=== PATIENT | male | born 1960 | race Caucasian/White ===

== ENCOUNTER 2020-09-08 11:19 | Inpatient (IN) ==
--- NOTE | 2020-09-01 08:43 | PAT Medication Instructions ---
Medication Instructions Date of Service September 01, 2020 Home Medications Medication Instructions Recorded oxycodone 5 mg PO Q6H PRN #20 tab 08/16/20 oxycodone 5 mg PO Q6H PRN Continue as directed oxycodone 5 mg PO Q6H PRN (keep taking, as needed leading up to surgery. Can be taken on morning of surgery, if really needed, up to four hours before arrival). *NOTHING TO EAT OR DRINK AFTER MIDNIGHT THE NIGHT BEFORE SURGERY* Other Notes If you have any questions please call us at [phone] or [phone] or [phone] or [phone]
--- NOTE | 2020-09-01 09:42 | Anesthesiology Consultation ---
Date of Service September 01, 2020 Assessment & Plan (1) Encounter for pre-operative examination: COVID Status: As of 09/01 assessment, patient denies travel to endemic area, known exposure/sick contacts, or symptoms of COVID19. Patient instructed that they and their household members must follow strict social distancing guidelines, wear a mask in public and avoid travel/events/gatherings for 14 days prior to surgery. Preoperative COVID19 testing completed at [facility] 09/01/20. Patient made aware to self-isolate as much as possible between COVID testing and surgery. Pt is fully vaccinated. Chart Review Chart Review: Acceptable Risk for Surgery and Patient seen in Pre Admission Testing Teaching & Discussion Instructed NPO after midnight before surgery, except medications with 15 cc of water. Medication instructions provided according to the [facility] guidelines. History Surgery Operation Date: 09/08/20 13:25 Proposed Procedures p Posterior Fusion Instrumentation Spinal Cord Monitoring - Richard Frost DO Height/Weight Height: 5 ft 9 in Weight: 97.2 kg Allergies Allergy/AdvReac Type Severity Reaction Status Date / Time No Known Allergies Allergy Unverified 08/30/20 12:47 Medications Home Medications Medication Instructions Recorded Confirmed Last Taken oxycodone 5 mg PO Q6H PRN #20 tab 08/16/20 08/30/20 Unknown Past Medical History Medical History Degenerative disc disease Sleep apnea CPAP DEVICE (DOES NOT USE EVERY NIGHT) Exercise / Class Metabolic Activity II 4-5 Yardwork/Stairs/Walk up hill (currently limited only because of back pain) Past Family History Family History Other No family history of adverse response to anesthesia Past Surgical History Surgical History History of arthroscopy LEFT SHOULDER History of cataract surgery RT/LEFT History of colonoscopy History of tooth extraction Past Anesthesia History No Hx of Anesthesia Complications and No Family Hx of Anesthesia Complications History of PONV No Hx of PONV and No Hx of Motion Sickness Social History Smoking Status: Never smoker tobacco type: smokeless tobacco Do You Dip or Chew Tobacco: No (QUIT AT AGE 46) Hx Alcohol Use: Yes Alcohol type: beer alcohol intake frequency: a few times a week substance use type: does not use Review of Systems Pt denies any recent chest pain, shortness of breath, palpitations, cough, fever, URI, or uncontrolled acid reflux. Physical Exam Vital Signs BP: 119/81 P: 97bpm SPO2: 97% RA T: 97.7 F R: 16 ENMT Mouth: + dental bridge (upper front teeth) and + dental restorations; no chipped teeth and no loose teeth Thyromental Distance: > or= 3.5 Finger Breadths Mallampati Class: III Neck + thick neck; neck extension not limited Respiratory normal respiratory effort, lungs clear to auscultation Cardiovascular RRR, no murmur, no edema Lab Results Anesthesia Preop Results Results Anesthesia Widget: WBC 13.38 K/uL (4.8-10.8) H 08/16/20 Hgb 16.9 g/dL (14.0-18.0) 08/16/20 Hct 48.2 % (42-52) 08/16/20 Plt 305 K/uL (130-400) 08/16/20 Na 135 mmol/L (136-145) L 08/16/20 K 4.1 mmol/L (3.5-5.1) 08/16/20 Cl 101 mmol/L (98-107) 08/16/20 CO2 27 mmol/L (21-32) 08/16/20 BUN 20 mg/dl (7-18) H 08/16/20 Creat 1.22 mg/dl (0.6-1.4) 08/16/20 Glucose Level 101 mg/dl (70-99) H 08/16/20 PT 10.3 Seconds (9.0-12.0) 08/16/20 PTT 26.5 Seconds (21.0-31.0) 08/16/20 INR 1.0 (0.9-1.1) 08/16/20 Lab Comments: *Re: elevated WBC count, patient had had steroid injection a few days prior to these labs. Testing Laboratory Results Urine Color Dark Yellow 09/01/20 09:54 Urine Appearance Clear (Clear) 09/01/20 09:54 Urine pH 5.0 (4.5-7.5) 09/01/20 09:54 Ur Specific [place] 1.026 (1.000-1.030) 09/01/20 09:54 Urine Protein Negative (Negative) 09/01/20 09:54 Urine Glucose (UA) Negative (Negative) 09/01/20 09:54 Urine Ketones Trace (Negative) H 09/01/20 09:54 Urine Nitrite Negative (Negative) 09/01/20 09:54 Ur Leukocyte Esterase Negative (Negative) 09/01/20 09:54 Blood Type O Positive 09/01/20 09:54 Antibody Screen NEGATIVE 09/01/20 09:54 Electrocardiogram Date: 08/16/20 Findings: + NSR @ (86bpm) Possible left atrial enlargement. Left axis deviation. No significant change compared EKG from 07/23/2012. Chest X-Ray Date: 09/01/20 Findings: + NAD
--- NOTE | 2020-09-01 10:25 | XRay Report ---
XR chest Pre-admission PA/Lat CLINICAL HISTORY: Preoperative evaluation. COMPARISON STUDY: Chest radiograph July 23, 2012. FINDINGS: Lung volumes are normal. Lungs are clear. There is no pneumothorax or pleural effusion. Car diac size is normal. Mediastinal contours are normal. There is no evidence for pulmonary edema. IMPRESSION: No acute cardiopulmonary findings. ACT 112: Negative or not required by law. Electronically signed by: Nino Meeks M.D. 09/01/2020 10:24 AM
[2020-09-01 10:48] LABS: Appearance Urine Clear (Clear); Blood Urine Negative (Negative); Color Urine Dark Yellow; Glucose Urine UA Negative (Negative); Ketones Urine Trace (Negative); Leukocyte Esterase Urine Negative (Negative); Nitrite Urine Negative (Negative); Protein Urine Negative (Negative); Specific Gravity Urine 1.026 (1.000-1.030); Urobilinogen Urine Negative (Negative)
[2020-09-01 10:55] LABS: Bilirubin Urine 1+ (Negative)
[~2020-09-08 11:19] MED LIST: ACETAMINOPHEN 500 MG TAB PO SCH; CeleBREX 200 MG CAP PO SCH; DEXAMETHASONE SOD INJ 4 MG/ML VIAL ONE; GABAPENTIN 300 MG CAP PO SCH; GLYCOPYRROLATE 0.2 MG/ML VIAL ONE; HYDROmorphone INJ 2 MG/ML SYR/VIAL ONE; LARYING-O-JET KIT (LTA) ONE; LIDOCAINE HCL 2% 2 ML VIAL/AMP(20MG/ML) INFIL ONE; LR 15ML/HR IV SCH; LR 60ML/HR IV SCH; MIDAZOLAM HCL 1 MG/ML 2ML VIAL ONE; NEOSTIGMINE METHYLSULFATE 1 MG/ML 10ML VIAL ONE; ONDANSETRON INJ 2 MG/ML 2 ML VIAL ONE; PROPOFOL IV EMULSION 10 MG/ML 20 ML VIAL IV ONE; ROCURONIUM BROMIDE 10 MG/ML 5 ML VIAL IV ONE; ceFAZolin 2000MG 2,000 MG/15 ML SYR IV SCH; fentaNYL citrate 100 MCG/2 ML VIAL ONE
[2020-09-08] MEDS ORDERED: ePHEDrine sulfate 50 MG/ML AMP IV PRN (12:36)
[2020-09-08] MEDS ORDERED: ONDANSETRON INJ 2 MG/ML 2 ML VIAL IV PRN ×2 (12:36→16:59)
[2020-09-08] MEDS ORDERED: ATROPINE SULFATE 0.1 MG/ML 10ML SYR IV PRN (12:36)
--- NOTE | 2020-09-08 12:55 | History & Physical Bridge Note ---
Date of Service September 08, 2020 History & Physical Bridge Note I have examined the patient, reviewed the History & Physical and in the interval since the performance of the History & Physical I have noted the following changes of clinical significance: no changes noted
--- NOTE | 2020-09-08 12:55 | History & Physical Report ---
Date of Service September 08, 2020 Assessment & Plan (1) Neurogenic claudication due to lumbar spinal stenosis: Admission and Anticipated Discharge Date Admission Date: L4-L5 decompression fusion History of Present Illness Chief Complaint: Back and leg pain Primary Care Provider: Angel Neal MD This is a 60-year-old male presents with chronic persistent back and leg pain. After failing course of nonoperative care is here for surgical invention. Allergies Allergy/AdvReac Type Severity Reaction Status Date / Time No Known Allergies Allergy Verified 09/08/20 11:40 Home Medications Medication Instructions Recorded Confirmed Type oxycodone 5 mg PO Q6H PRN #20 tab 08/16/20 09/08/20 Rx acetaminophen [Tylenol Extra 1,000 mg PO Q6H PRN 09/08/20 09/08/20 History Strength] Past Med/Surg History Medical History Degenerative disc disease Sleep apnea CPAP DEVICE (DOES NOT USE EVERY NIGHT) Surgical History History of arthroscopy LEFT SHOULDER History of cataract surgery RT/LEFT History of colonoscopy History of tooth extraction Family History Other No family history of adverse response to anesthesia Social History Smoking Status: Never smoker Second Hand Exposure: No; Do You Dip or Chew Tobacco: No (QUIT AT AGE 46); Tobacco Cessation Education Requested by Patient: No Hx Alcohol Use: Yes Alcohol type: beer Preferred Language: Wolof Accident Examiner Required: No Beliefs That Will Affect Care: None Current Living Situation: Significant Other Feels Safe at Home: Yes Safety Concerns: Feels Safe At This Time Assistive Devices: CPAP Physical Exam Physical Exam: Patient is alert and oriented Heart regular in rhythm Lungs clear to auscultation Results & Data ([facility]) Vital Signs (Past 12 Hours) Vital Signs Temp Pulse Resp BP Pulse Ox 09/08/20 11:42 36.7 C 97 H 20 159/96 H 98
[2020-09-08] MEDS ORDERED: BUPIVACAINE/EPINEPHRINE 0.5% MPF 1:200,000 30 ML VIAL ONE (13:13)
[2020-09-08] MEDS ORDERED: ONDANSETRON INJ 2 MG/ML 2 ML VIAL ONE (14:03)
[2020-09-08] MEDS ORDERED: ROCURONIUM BROMIDE 10 MG/ML 5 ML VIAL IV ONE (14:03)
[2020-09-08] MEDS ORDERED: PHENYLEPHRINE 100MCG/ML 5ML SYR ONE (14:03)
[2020-09-08] MEDS ORDERED: GLYCOPYRROLATE 0.2 MG/ML VIAL ONE (14:03)
[2020-09-08] MEDS ORDERED: FLOSEAL HEMOSTATIC MATRIX 10ML TOP ONE (14:15)
[2020-09-08] MEDS ORDERED: ePHEDrine sulfate 50 MG/ML AMP ONE (14:21)
[2020-09-08] MEDS ORDERED: ePHEDrine sulfate 50 MG/ML SYR ONE (14:41)
--- NOTE | 2020-09-08 15:08 | Operative Report ---
Post Operative Report Pre & Post Diagnosis Operation Date: 09/08/20 13:05 Pre-Op Diagnosis: Neurogenic claudication due to lumbar spinal stenosis L4-L5 Post-Op Diagnosis: Neurogenic claudication due to lumbar spinal stenosis L4-L5 I identified the patient and participated in the time-out.: Yes Procedure Operation Date: 09/08/20 13:05 Actual Procedures #1 lumbar decompression with bilateral medial facetectomy foraminotomy L4-L5. #2 posterior spinal fusion L4-5. #3 placed posterior instrumentation L4-L5. #4 interbody fusion L4-5. #5 placement peek cage 13 x 26 at L4-L5. #6 placement locally harvested morselized autograft in the posterior gutters. #7 placement of I factor in the interbody cage and posterior gutters. Surgeon Richard Frost, Retail Reset Merchandiser Nataliya Escobar Estimated Blood Loss 150 Findings Consistent with Post-Op Diagnosis Specimens None Indications This is a 60-year-old male who presents above-mentioned diagnosis after failing course of nonoperative care is here for the above-mentioned procedure. Description of Procedure Patient was met with identified informed consent obtained. Patient was then taken to the operative suite underwent a patient placed in a prone position the [facility] top Evert frame. All bony prominences well-padded eyes inspected to ensure no external pressure placed upon the. This point the lumbar spine was prepped and draped in a sterile fashion. Sharp dissection with the assistance of Bovie cautery was performed down to and exposing the lamina and transverse processes of L4 and L5 bilaterally. From caudal cephalad fashion complete laminectomy L4 was performed including bilateral medial facetectomies and lizabeth inotomies as well as a large free fragment disc material on the left identified and removed. Pedicle screws were then placed in L4 and L5 bilaterally with assistance of fluoroscopy and the proper sized an placed. By way the transforaminal portion of left complete discectomy was performed endplates curetted to subcortical any bone and a 13 x 26 mm peek cage filled with I factor tapped in position. The rods were then locked in final position bilaterally. The transverse processes of L4 and L5 burred to subcortical bleeding bone. I factor combined with locally harvested morselized autograft was placed in the posterior gutters. 15 round CAMELIA drain inserted. The incision was then closed with 1 Vicryl fascia 2-0 Vicryl subcutaneously and 4 Monocryl for final skin closure. Steri-Strip sterile dressings placed. Patient will continue PACU in stable condition. Please note spinal cord monitoring was utilized at the procedure no changes noted. Lastly Nataliya Escobar was present at the entire surgery while the patient positioning complex portions of the surgery and final skin closure. I attest to the content of the Intraoperative Record and any orders documented therein. Any exceptions are noted below.
--- NOTE | 2020-09-08 15:12 | Fluoroscopy Report ---
FL lumbar spine 2-3V HISTORY: 60 years-old Male L4-L5 DECOMPRESSION AND FUSION COMPARISON: MRI lumbar spine 08/16/2020 TECHNIQUE: 3 spot fluoroscopic images of the lumbar spine were obtained utilizing 17.8 seconds fluoro scopy time FINDINGS: Laminectomy with posterior interbody an and screw fusion and discectomy changes at L4-L5. The hardwa re appears intact. No opaque foreign body identified. Alignment appears satisfactory. IMPRESSION: Fluoroscopic assistance as above. ACT 112: Negative or not required by law. The above report was generated using voice recognition software. It may contain grammatical, syntax o r spelling errors. Electronically signed by: Javier Lee M.D. 09/08/2020 3:11 PM
[2020-09-08] MEDS: fentaNYL citrate 100 MCG/2 ML VIAL IV PRN ×4 (15:25→15:48)
[2020-09-08] MEDS: HYDROmorphone INJ 2 MG/ML SYR/VIAL IV PRN ×2 (16:00→16:14)
--- NOTE | 2020-09-08 16:21 | Anesthesiology Progress Note ---
Date of Service September 08, 2020 Anesthesia Post Procedure Vital Signs Vital Signs: Temp Pulse Pulse Resp BP BP Pulse Ox 09/08/20 16:10 80 12 146/86 H 97 09/08/20 16:00 84 12 159/78 H 97 09/08/20 15:50 87 12 147/80 H 97 09/08/20 15:40 84 16 162/79 H 95 09/08/20 15:30 87 12 146/83 H 100 09/08/20 15:20 36.3 C L 92 H 10 L 154/94 H 100 09/08/20 11:42 36.7 C 97 H 20 159/96 H 98 Pain Intensity Left Hip: Pain Intensity: 3 Transfer of Care Handoff Completed per policy Notes Mental Status: alert / awake / arousable and participated in evaluation Patient Amnestic to Procedure: Yes Nausea / Vomiting: adequately controlled Pain: adequately controlled Airway Patency, RR, SpO2: stable & adequate BP & HR: stable & adequate Hydration State: stable & adequate Anesthetic Complications: no major complications apparent and Pt Satisfied with anesthetic care
[2020-09-08] MEDS ORDERED: DO NOT ADMINISTER PNEUMOCOCCAL VACCINE PRN (16:59)
[2020-09-08] MEDS ORDERED: LORazepam 0.5 MG/1 ML VIAL IV PRN (16:59)
[2020-09-08] MEDS ORDERED: MAGNESIUM HYDROXIDE SUSP 30 ML UDC PO PRN (16:59)
[2020-09-08] MEDS ORDERED: bisacodyL 10 MG SUPP PR PRN (16:59)
[2020-09-08] MEDS ORDERED: HYDROmorphone INJ 1 MG/ML SYRINGE IV PRN (16:59)
[2020-09-08] MEDS ORDERED: METOCLOPRAMIDE HCL INJ 5 MG/ML 2 ML VIAL IV PRN (16:59)
[2020-09-08] MEDS ORDERED: ACETAMINOPHEN 1,000 MG/100 ML VIAL IV PRN (16:59)
[2020-09-08] MEDS ORDERED: SOD PHOSPHATE/SOD BIPHOSPHATE ENEMA 132 ML BTL PR PRN (16:59)
[2020-09-08] MEDS ORDERED: ALUMINUM/MAGNESIUM SUSP 30 ML UDC PO PRN (16:59)
[2020-09-08] MEDS ORDERED: FAMOTIDINE 20 MG TAB PO PRN (16:59)
[2020-09-08] MEDS ORDERED: DO NOT ADMINISTER FLU VACCINE PRN (16:59)
[2020-09-08] MEDS ORDERED: PROMETHAZINE HCL 12.5 MG in SODIUM CHLORIDE 0.9% 50 ML IV PRN (16:59)
[2020-09-08] MEDS ORDERED: HYDROmorphone INJ 0.5 MG/0.5 ML SYR IV PRN (16:59)
[2020-09-08] MEDS ORDERED: hydrOXYzine HCl 25 MG TAB PO PRN (16:59)
[2020-09-08] MEDS ORDERED: NALOXONE HCL 0.4 MG/1 ML VIAL/CARP IV PRN (16:59)
[2020-09-08] MEDS ORDERED: ONDANSETRON 4 MG OD TAB PO PRN (16:59)
[2020-09-08] MEDS ORDERED: LORazepam 0.5 MG TAB PO PRN (16:59)
--- NOTE | 2020-09-08 17:32 | Hospitalist Consultation ---
Date of Consultation September 08, 2020 Assessment & Plan (1) Neurogenic claudication due to lumbar spinal stenosis: - S/p L4-L5 decompression fusion by Dr. Frost on 09/08/2020 - Pain management, bowel regimen per the primary team - PT/OT consults - Follow am CBC to monitor for acute blood loss (2) MANI (obstructive sleep apnea): - Cpap - will use one from in house as did not bring from home. Reports that he has not been using CPAP machine at home due to poor seal with movement at night due to low back pain. Hopefully this is better now his pain is controlled. (3) Obesity (BMI 30.0-34.9): - BMI of 31.4, diet and exercise to be encouraged upon discharge (4) DVT prophylaxis: - teds, scds CODE: Full code Dispo: From home, likely to remain in the hospital x 1-2 days Thank you for involving us in the care of Mr. Laura. Please do not hesitate to call with questions or concerns. Medicine service will follow along. Supervising Physician Co-Signing Physician Notes Patient is a 60 yr male with history of lumbar spinal stenosis, obstructive sleep apnea and no other significant medical problems was consulted for postop medical management after having L4-L5 lumbar decompression fusion surgery by Dr. Frost. Patient is doing well postop. Complains of minimal pain at incisional site. Denies any chest pain, shortness breath, dizziness, nausea, abdominal pain. On exam patient is obese, no apparent distress, normocephalic atraumatic, lungs are clear to auscultation, S1-S2, no murmur, no pedal edema, abdomen soft, nontender, normal bowel sounds, back--surgical site in dressing+ drain, alert, awake, oriented, grossly no focal deficits. Patient is consulted for postop med ical management. Activity, pain control, wound care as per primary team. On SCDs for DVT prophylaxis. Patient currently not compliant with CPAP prior to admission. Counseled to use CPAP regularly. Monitor for postop anemia. Bowel regimen to prevent constipation. I personally reviewed the record. Patient is interviewed and examined at bedside. Patient's care is coordinated with Marilee Mak PA-C. Please refer to the documentation above for details of patient's presentation and for discussion of other issues. History of Present Illness Attending Physician: Richard Frost, History of Present Illness This is a 60 yo M with PMHx of neurogenic claudication due to lumbar spinal stenosis history of MANI on CPAP, who underwent elective L4-L5 decompression fusion by Dr. Frost on 09/08/2020. The patient was seen and examined this evening after surgery. Patient reports feeling quite well. He denies any acute pain, states he is somewhat sore over the incision and low back but does not have pain down into his legs, buttocks or in the calf muscle like previously. Rates his current pain is a 3/10 and is tolerable. He has not yet eaten anything but denies any nausea or vomiting. He is tolerating fluids without difficulty. Patient last BM was this morning. Denies any issues with history of urinary retention, has not yet urinated since surgery. Has history of MANI but has not been wearing CPAP for months due to low back pain causing him to shift normal often during the night and therefore had poor seal with CPAP machine. He is agreeable to wearing cpap here in the hospital. Lives at home with his girlfriend. Allergies Allergy/AdvReac Type Severity Reaction Status Date / Time No Known Allergies Allergy Verified 09/08/20 11:40 Home Medications Medication Instructions Recorded Confirmed Type oxycodone 5 mg PO Q6H PRN #20 tab 08/16/20 09/08/20 Rx acetaminophen [Tylenol Extra 1,000 mg PO Q6H PRN 09/08/20 09/08/20 History Strength] Patient History Medical History Degenerative disc disease Sleep apnea CPAP DEVICE (DOES NOT USE EVERY NIGHT) Surgical History History of arthroscopy LEFT SHOULDER History of cataract surgery RT/LEFT History of colonoscopy History of tooth extraction Family History Other No family history of adverse response to anesthesia Social History Smoking Status: Never smoker Second Hand Exposure: No; Do You Dip or Chew Tobacco: No (QUIT AT AGE 46); Tobacco Cessation Education Requested by Patient: No Hx Alcohol Use: Yes Alcohol type: beer Preferred Language: Turkmen Superintendent Drilling And Production Required: No Beliefs That Will Affect Care: None Current Living Situation: Significant Other Feels Safe at Home: Yes Safety Concerns: Feels Safe At This Time Assistive Devices: Walker Review of Systems Review of Systems: Constitutional: No fever, sweats or chills Eyes: No diplopia, no worsening or blurred vision ENT: normal hearing, no trouble swallowing Respiratory: No cough, sputum, dyspnea at rest or on exertion Cardiovascular: No chest pain, tightness or palpitations Abdomen: No pain, nausea, vomiting, diarrhea or constipation Back: As per HPI, slightly sore, no radiation of pain, pain rated 3/10 Musculoskeletal: No joint pain, calf pain, swelling Neurologic: No weakness, numbness/tingling, or balance problems Psychiatric: No anxiety or depression Skin: No rash or itch Physical Exam Physical Exam: General: awake, alert, no apparent distress, obese BMI 31.4 Head: Normocephalic, atraumatic ENT: PERRL, EOMI, no pharyngeal exudate, mucous membranes moist Chest: Clear to auscultation, on room air, no adventitious breath sounds Cardiac: Regular rate and rhythm, no murmur, no JVD, normal peripheral pulses, good capillary refill Abdominal: NABS x 4 quadrants, soft, nondistended, nontender to palpation, no rebound or guarding Back: CAMELIA drain in place draining serosanguineous fluid, incision not examined as patient is lying flat postoperatively. Extremities: Normal inspection, no peripheral edema or erythema, calfs nontender to palpation, able to move all extremities without any difficulty Psych: Normal mood and affect Neuro: AAO x 3, strength intact bilaterally and rated 5/5, no motor deficits, speech is clear, no peripheral sensory deficits Results & Data Results & Data ([facility]) Vital Signs (Past 12 Hours) Vital Signs Temp Pulse Pulse Resp BP BP Pulse Ox 09/08/20 17:06 37 C 103 H 20 154/91 H 96 09/08/20 16:40 85 12 143/74 H 98 09/08/20 16:30 77 12 139/84 94 09/08/20 16:20 36.6 C 90 14 132/84 97 09/08/20 16:10 80 12 146/86 H 97 09/08/20 16:00 84 12 159/78 H 97 09/08/20 15:50 87 12 147/80 H 97 09/08/20 15:40 84 16 162/79 H 95 09/08/20 15:30 87 12 146/83 H 100 09/08/20 15:20 36.3 C L 92 H 10 L 154/94 H 100 09/08/20 11:42 36.7 C 97 H 20 159/96 H 98
[2020-09-08] MEDS: KETOROLAC TROMETHAMINE 15 MG/ML VIAL IV SCH (17:58)
[2020-09-08] MEDS: LACTATED RINGER'S 1,000 ML IV SCH ×2 (17:59→21:09)
[2020-09-08] MEDS ORDERED: CHLORASEPTIC 1.4% SOLN 180 ML BTL MT PRN (18:37)
[2020-09-08] MEDS: DOCUSATE SODIUM/SENNA 50/8.6MG TAB PO SCH (20:51)
[2020-09-08] MEDS: ceFAZolin 2000MG 2,000 MG/15 ML SYR IV SCH (21:02)
[2020-09-08] MEDS: oxyCODONE HCL IR 5 MG TAB (IMMEDIATE RELEASE) PO PRN (21:02)
[2020-09-09] MEDS: KETOROLAC TROMETHAMINE 15 MG/ML VIAL IV SCH ×3 (00:15→12:31)
[2020-09-09] MEDS: ACETAMINOPHEN 500 MG TAB PO PRN (01:00)
[2020-09-09] MEDS: diphenhydrAMINE Capsule 25 MG CAP PO PRN (01:01)
[2020-09-09] MEDS: ceFAZolin 2000MG 2,000 MG/15 ML SYR IV SCH (05:11)
[2020-09-09] MEDS: POLYETHYLENE (MIRALAX) 17 GM PACK PO SCH ×3 (05:12→18:08)
[2020-09-09 05:52] LABS: Hematocrit (blood only) 35.5 % (42-52); Hemoglobin 12.4 g/dL (14.0-18.0); Immature Granulocytes # (auto) 0.03 K/uL (0.00-0.02); Immature Granulocytes % (auto) 0.2 %; Lymphocytes # (auto) 1.45 K/uL (1.2-3.4); Lymphocytes % (auto) 11.7 %; Mean Corpuscular Hemoglobin 30.9 pg (25-34); Mean Corpuscular Hgb Conc 34.9 g/dL (32-36); Mean Corpuscular Volume 88.5 fL (80-100); Mean Platelet Volume 10.6 fL (7.4-10.4); Monocytes # (auto) 0.49 K/uL (0.11-0.59); Neutrophils # (auto) 10.43 K/uL (1.4-6.5); Neutrophils % (auto) 84.1 %; Platelet Count 198 K/uL (130-400); RDW Coefficient of Variation 13.4 % (11.5-14.5); RDW Standard Deviation 43.1 fL (36.4-46.3); Red Blood Count 4.01 M/uL (4.7-6.1)
[2020-09-09 06:19] LABS: BUN Creatinine Ratio 11.4 (10-20); Calcium 9.1 mg/dl (8.5-10.1); Creatinine Clr Calc Pharmacy 104.4 ml/min; Est GFR (African American) 108.8 ml/min; Est GFR (Non-African American) 93.8 ml/min; Magnesium 1.8 mg/dl (1.8-2.4); Potassium 4.7 mmol/L (3.5-5.1)
--- NOTE | 2020-09-09 08:52 | Hospitalist Progress Note ---
Date of Service September 09, 2020 Assessment & Plan (1) Neurogenic claudication due to lumbar spinal stenosis: - S/p L4-L5 decompression fusion by Dr. Frost on 09/08/2020 - POD#1 -Per ortho for pain control, wound care, anticoagulation and activities -Monitor H&H, continue incentive spirometry, PT/OT when appropriate Acute blood loss anemia Hgb 12.4 today (pre-op hgb 16.9) Asymptomatic Continue to monitor with daily CBC (2) MANI (obstructive sleep apnea): - Cpap - will use one from in house as did not bring from home. Reports that he has not been using CPAP machine at home due to poor seal with movement at night due to low back pain. Hopefully this is better now his pain is controlled. (3) Obesity (BMI 30.0-34.9): - BMI of 31.4, diet and exercise to be encouraged upon discharge (4) DVT prophylaxis: - teds, scds CODE: Full code Dispo: From home, likely to remain in the hospital x 1-2 days Thank you for involving us in the care of Mr. Laura. Please do not hesitate to call with questions or concerns. Medicine service will follow along. Patient seen in collaboration with Dr. Fajardo. Please see addendum. Admission and Anticipated Discharge Date Admission Date: September 08, 2020 Supervising Physician Co-Signing Physician Notes 60-year-old man with lumbar spinal stenosis, MANI who had L4-L5 lumbar decompression yesterday Patient seen and care coordinated with Brandi Brown PA-C. Currently only complains of pain at the surgical site. Hb is 12.4 today from preop of 16.9 Likely due to surgical blood loss plus dilutional from IV fluids Monitor Hemoglobin Continue CPAP HS Surgical site management and pain control per Primary Surgical team Agree with other plans as detailed by Brandi Brown PA-C Subjective Patient seen and examined in 300-1. Feeling well today with minimal surgical site pain. No pain or paresthesias in bilateral lower extremities. Tolerating diet without issue. No nausea, vomiting or abdominal pain. [place] catheter removed and urinating without difficulty. No dysuria. Denies fever, chills, lightheadedness, visual changes, palpitations, chest pain or SOB. Review of Systems Review of Systems: Constitutional: No fever, sweats or chills Eyes: No diplopia, no worsening or blurred vision ENT: normal hearing, no trouble swallowing Respiratory: No cough, sputum, dyspnea at rest or on exertion Cardiovascular: No chest pain, tightness or palpitations Abdomen: No pain, nausea, vomiting, diarrhea or constipation Back: As per HPI, slightly sore, no radiation of pain, pain rated 3/10 Musculoskeletal: No joint pain, calf pain, swelling Neurologic: No weakness, numbness/tingling, or balance problems Psychiatric: No anxiety or depression Skin: No rash or itch Physical Exam Physical Exam: General Appearance: WD/WN, vitals as above, NAD, sitting up in bed, pleasant, conversing easily Head: normocephalic, atraumatic Eyes: normal inspection, PERRL, conjunctivae normal, anicteric sclerae ENT: external ear and nose normal, oropharynx normal Neck: normal visual inspection, trachea midline, no thyromegaly Respiratory: normal respiratory effort, lungs clear to auscultation, no wheeze, rales, rhonchi. No accessory muscle use Cardiovascular: regular rate, rhythm, no murmur, normal peripheral pulses, no BLE edema. Vessels: no JVD Chest: normal inspection of chest Abdomen/GI: normal bowel sounds, soft, nontender, no hepatosplenomegaly Extremities/Musculoskeletal: +Lumbosacral spinal dressing c/d/i. CAMELIA drain visualized. No cyanosis or clubbing, extremities motor strength 5/5 Neurologic: PERRL, EOMI, accommodation nl, no face palsy, no dysarthria, CN's II-XI intact bilaterally and moves all extremities Psychiatric: A+Ox3, euthymic affect Skin: no rashes, normal color, warm/dry Results & Data Results & Data ([facility]) Vital Signs (Past 12 Hours) Vital Signs Temp Pulse Resp BP Pulse Ox 09/09/20 07:23 36.5 C 84 18 124/68 98 09/09/20 03:08 36.6 C 94 H 18 143/73 H 97 09/09/20 01:21 99 09/08/20 23:09 36.5 C 90 18 121/72 99 09/08/20 20:55 36.4 C L 105 H 20 151/84 H 95 Laboratory Results Short CBC 09/09/20 Range/Units 05:30 WBC 12.40 H (4.8-10.8) K/uL Hgb 12.4 L (14.0-18.0) g/dL Hct 35.5 L (42-52) % Plt Count 198 (130-400) K/uL BMP 09/09/20 05:30 Sodium 139 Potassium 4.7 Chloride 107 Carbon Dioxide 28 BUN 10 Creatinine 0.84 Glucose 106 H Calcium 9.1 Diagnostic Findings Chest X-Ray 09/01/20 08:27 XR chest Pre-admission PA/Lat CLINICAL HISTORY: Preoperative evaluation. COMPARISON STUDY: Chest radiograph July 23, 2012. FINDINGS: Lung volumes are normal. Lungs are clear. There is no pneumothorax or pleural effusion. Cardiac size is normal. Mediastinal contours are normal. There is no evidence for pulmonary edema. IMPRESSION: No acute cardiopulmonary findings. ACT 112: Negative or not required by law. Electronically signed by: Nino Meeks M.D. 09/01/2020 10:24 AM Lumbar Spine X-Ray 09/08/20 13:05 FL lumbar spine 2-3V HISTORY: 60 years-old Male L4-L5 DECOMPRESSION AND FUSION COMPARISON: MRI lumbar spine 08/16/2020 TECHNIQUE: 3 spot fluoroscopic images of the lumbar spine were obtained utilizing 17.8 seconds fluoroscopy time FINDINGS: Laminectomy with posterior interbody an and screw fusion and discectomy changes at L4-L5. The hardware appears intact. No opaque foreign body identified. Alignment appears satisfactory. IMPRESSION: Fluoroscopic assistance as above. ACT 112: Negative or not required by law. The above report was generated using voice recognition software. It may contain grammatical, syntax or spelling errors. Electronically signed by: Javier Lee M.D. 09/08/2020 3:11 PM
--- NOTE | 2020-09-09 10:01 | Orthopedic Progress Note ---
Date of Service September 09, 2020 Assessment & Plan (1) Neurogenic claudication due to lumbar spinal stenosis: Admission and Anticipated Discharge Date Admission Date: September 08, 2020 This point we will continue with physical therapy monitor his CAMELIA output hopefully discharge home in next few days. Subjective Back pain controlled leg pain markedly improved. Physical Exam Physical Exam: Patient has good strength testing appears comfortable. Results & Data ([facility]) Vital Signs (Past 12 Hours) Vital Signs Temp Pulse Resp BP Pulse Ox 09/09/20 07:23 36.5 C 84 18 124/68 98 09/09/20 03:08 36.6 C 94 H 18 143/73 H 97 09/09/20 01:21 99 09/08/20 23:09 36.5 C 90 18 121/72 99
[2020-09-09] MEDS: traMADol HCL 50 MG TABLET PO PRN (21:43)
[2020-09-09] MEDS: DOCUSATE SODIUM/SENNA 50/8.6MG TAB PO SCH (21:43)
[2020-09-10] MEDS: POLYETHYLENE (MIRALAX) 17 GM PACK PO SCH ×2 (00:42→05:54)
[2020-09-10] MEDS: ACETAMINOPHEN 500 MG TAB PO PRN (00:44)
[2020-09-10] MEDS: diphenhydrAMINE Capsule 25 MG CAP PO PRN (00:44)
[2020-09-10 05:46] LABS: Hematocrit (blood only) 34.5 % (42-52); Hemoglobin 11.6 g/dL (14.0-18.0); Mean Corpuscular Hemoglobin 30.5 pg (25-34); Mean Corpuscular Hgb Conc 33.6 g/dL (32-36); Mean Corpuscular Volume 90.8 fL (80-100); Mean Platelet Volume 10.9 fL (7.4-10.4); Platelet Count 154 K/uL (130-400); RDW Coefficient of Variation 14.1 % (11.5-14.5); RDW Standard Deviation 45.7 fL (36.4-46.3); White Blood Count 8.75 K/uL (4.8-10.8)
[2020-09-10] MEDS: traMADol HCL 50 MG TABLET PO PRN (06:06)
[2020-09-10 06:12] LABS: BUN Creatinine Ratio 17.5 (10-20); Calcium 8.2 mg/dl (8.5-10.1); Creatinine Clr Calc Pharmacy 109.7 ml/min; Est GFR (Non-African American) 95.7 ml/min
[2020-09-10] MEDS: oxyCODONE HCL IR 5 MG TAB (IMMEDIATE RELEASE) PO PRN (07:46)
[2020-09-10] MEDS ORDERED: dexAMETHasone 8 MG in SYRINGE 0 ML IV SCH (09:00)
--- NOTE | 2020-09-10 10:57 | Discharge Summary ---
Date of Service September 10, 2020 Admission HPI Per Admitting Provider This is a 60-year-old male presents with chronic persistent back and leg pain. After failing course of nonoperative care is here for surgical invention. Principal Diagnosis Lumbar spinal stenosis with radiculopathy Discharge Data Allergies Allergy/AdvReac Type Severity Reaction Status Date / Time No Known Allergies Allergy Verified 09/08/20 11:40 Consultations 09/08/20 16:59 Consult Hospitalist Routine Procedures Performed Operation Date: 09/08/20 13:05 Actual Procedures p L4-L5 Decompression Fusion, Interbody Fusion L-L5 with Spinal Cord Monitoring(Not Applicable) - Richard Frost DO Ordered Studies 09/08/20 13:05 FL lumbar spine 2-3V Routine Hospital Course (1) Neurogenic claudication due to lumbar spinal stenosis: Patient with lumbar decompression fusion tolerates well second orthopedic for possibly. Postop day 1 he was up and ambulating progressed to postop day #2. Pain well controlled. CAMELIA drain decreasing probably. Excellent strength testing. Subsequently discharged home. Discharge orders instructions from the chart for further review. Total Time Total Time Spent Total Time Spent (In Minutes): 20 minutes Discharge Plan Discharge Items Patient Disposition: Home - Self-Care Reason For Visit: Other Intervertebral Disc Displacement Lumbar Discharge Diagnosis: Lumbar spinal stenosis with radiculopathy Activity: As commented below Non-emergency contact: Primary Care Provider Call non-emergency contact if: you have any medication questions Follow-up/Referrals: Angel Neal MD [Primary Care Provider] - Diet: Regular Addtl Attending Provider Instructions: ACTIVITY RECOMMENDATIONS: SELF CARE INSTRUCTIONS AFTER THORACIC/LUMBAR FUSIONS 1. You may walk to your tolerance. It is good exercise for your legs and back. Expect some back and intermittent leg aches and pains. 2. You may perform "counter-top" level activities (make a sandwich, grace with a project, etc.). 3. No bending or lifting of more than 10 pounds or back twisting of any nature (roll like a log when turning in bed). 4. You may ride in a car for 20-30 minutes at a time. No driving until after your first visit with your doctor. 5. Frequent changes of position and restricting sitting to 30 minutes at a time will help limit the amount of back spasms and stiffness you may experience. 6. You may discontinue the use of ambulatory aids (cane, crutches, etc.) once your strength and confidence allow. 7. You may vineyard worker the shower and let water strike your incision when you arrive home at least once daily. Do not take a tub bath, sit in a hot tub or go into a swimming pool until after your first recheck in the office. SPECIAL CARE INSTRUCTIONS: VERY IMPORTANT TO READ AND REVIEW A. Your surgical incision has been closed with a cosmetic suture under the skin that will dissolve in about 6 weeks. In 14 days, you can use a pair of clean scissors and cut the suture that is left outside of the skin at the ends of your incision. 1. The small skin tapes can be removed 7 days after surgery if they have not fallen off by that point. 2. You may keep the wound open to air as much as possible to promote healing after post-op day number 5 unless told otherwise by your doctor. 3. If you think the wound looks like it is becoming infected (redness or worsening drainage) and/or you are experiencing fever, chill or worsening back pain and muscle spasms, contact the office so that we may evaluate you as soon as possible. B. Complications are uncommon, but please contact us if you have any signs or symptoms of: 1. wound infection (fever higher than 102.5 degrees F, redness, separation of wound, drainage, or increasing pain from the incision) 2. blood clots in legs (pain, swelling, redness and warmth in legs) 3. urinary tract infection (fever higher than 102.5 degrees F, burning upon urination or increased frequency of urination) 4. nerve problems (inability to walk on your toes or heels, numbness, loss of bowel or bladder control) 5. any other symptoms that concern you C. Please call the office at if you have any concerns or questions about your operation or recovery. D. No smoking! Smoking drastically decreases the chance of a solid fusion. E. Do not take any anti-inflammatory medications (Indocin, Advil, Motrin, Aspirin, Naprosyn, etc.) as these may inhibit the chance of a solid fusion. Tylenol is okay to take for pain. MANAGING PAIN AFTER SPINAL SURGERY 1. Narcotic medication is intended for short-term use and will be provided for surgical pain. Surgical pain usually lasts for a period of 4-6 weeks. Narcotic medication includes Percocet, Vicodin, Darvocet, Tylenol #3 or Lortab. 2. Longer-term pain is more appropriately treated with non-narcotic medication such as Tylenol ES. 3. Muscle spasm is not appropriately treated with narcotics. Muscle relaxers such as Soma, Flexeril or Skelaxin can be used along with Tylenol ES. 4. Remember that we all live with some "aches and pains". This is not unusual or uncommon after an injury or as we get older. a. Back pain is expected and may include muscle spasms for 4 to 6 weeks after surgery. The pain should gradually improve. If the pain worsens for no apparent reason, please contact the office. b. Intermittent leg pain may also be experienced and should not be concerned about unless it worsens for no apparent reason. If so, please contact the office. 5. We will provide appropriate medication within the normal guidelines of their prescribed use. We will also be very cautious and aware of potential abuse and extended duration of patients' medication needs. a. Pain medications are for your comfort and to assist with sleep and rest so that the tissue can heal. They are not provided in order to return to normal activity and should not be used through the day. To do so or worsening pain at night can result from ongoing tissue damage and development of tolerance to the prescribed medicine. 6. Please allow 2-3 days to process refills. Prescriptions will not be mailed but must be picked up at the office. FOLLOW UP VISIT: Keep your scheduled follow-up appointment. Any questions, please call the office at . Pending Studies at Discharge: No Stand-Alone Forms: [facility], Smoking Cessation Medications and DC Order Prescriptions: New tramadol 50 mg tablet 50 mg PO Q6H PRN (Reason: pain, moderate) Qty: 30 RF: 0 oxycodone 5 mg tablet 5 mg PO Q6H PRN (Reason: pain, severe) Qty: 30 RF: 0 Continued oxycodone 5 mg tablet 5 mg PO Q6H PRN (Reason: pain) Qty: 20 RF: 0 acetaminophen 500 mg Capsule 1,000 mg PO Q6H PRN (Reason: Pain) RF: 0 Discharge Orders: Discharge Order (Routine); Ordered 09/10/20 Ordered By: Richard Frost Admission Data Admit Date/Time: 09/08/20 15:21 Attending Provider: Richard Frost Admit Provider: Richard Frost Primary Care Provider: Angel Neal Other Providers: Jennifer Aquino ; Michelle Fajardo I.
--- NOTE | 2020-09-10 11:03 | Hospitalist Progress Note ---
Date of Service September 10, 2020 Assessment & Plan (1) Neurogenic claudication due to lumbar spinal stenosis: S/p L4-L5 decompression fusion by Dr. Frost on 09/08/2020 - POD#2 Pain controlled Acute blood loss anemia Hgb 11.6 today (pre-op hgb 16.9) Asymptomatic Likely blood loss anemia +/-dilutional from IVF (2) MANI (obstructive sleep apnea): Continue CPAP HS (3) Obesity (BMI 30.0-34.9): BMI of 31.4 Counselled on need for weight loss and lifestyle modification (4) DVT prophylaxis: SCD CODE: Full code Ok to be discharged home from medical perspective Can follow up with Surgeon and PCP Admission and Anticipated Discharge Date Admission Date: September 08, 2020 Subjective 60-year-old man with lumbar spinal stenosis, MANI who had L4-L5 lumbar decompression POD 2 Patient seen and examined. Patient doing great. Reports only other complaints Physical Exam Constitutional: + well hydrated; no acute distress Eyes: PERRL, conjunctivae normal, anicteric sclerae ENMT: external ear and nose normal, oropharynx normal Respiratory: normal respiratory effort, lungs clear to auscultation Cardiovascular: RRR, no murmur, no edema Gastrointestinal (Abdomen): normal bowel sounds, soft, nontender, no hepatosplenomegaly Musculoskeletal: Clean dressing at surgical site over lower back Neurologic: PERRL, EOMI, accommodation nl, no face palsy, no dysarthria Psychiatric: A+Ox3, euthymic affect Results & Data Results & Data ([facility]) Vital Signs (Past 12 Hours) Vital Signs Temp Pulse Resp BP Pulse Ox 09/10/20 06:00 36.7 C 77 18 145/88 H 97 Laboratory Results Laboratory Results - last 24 hr 09/10/20 09/10/20 05:14 05:14 WBC 8.75 RBC 3.80 L Hgb 11.6 L Hct 34.5 L MCV 90.8 MCH 30.5 MCHC 33.6 RDW Std Deviation 45.7 RDW Coeff of Susanna 14.1 Plt Count 154 MPV 10.9 H Sodium 140 Potassium 4.0 Chloride 108 H Carbon Dioxide 32 Anion Gap 0 L BUN 14 Creatinine 0.80 Est Cr Clr Drug Dosing 109.7 Est GFR ( Amer) 111.0 Est GFR (Non-Af Amer) 95.7 BUN/Creatinine Ratio 17.5 Glucose 90 Calcium 8.2 L
== END 2020-09-10 12:34 | disposition home or self-care (01) | DRG 454 ==
LOC: ASU 11:19 → 3E 15:21

== ENCOUNTER 2022-08-04 07:57 | Inpatient (IN) ==
--- NOTE | 2022-07-17 13:50 | PAT Medication Instructions ---
Medication Instructions Date of Service July 17, 2022 Home Medications acetaminophen 500 mg capsule 1,000 mg PO Q6H PRN Pain gabapentin 300 mg tablet 300 mg PO BID Take morning of surgery With a small sip of water, OTHERWISE NOTHING TO EAT OR DRINK AFTER MIDNIGHT: acetaminophen 500 mg capsule 1,000 mg PO Q6H PRN Pain (if needed) gabapentin 300 mg tablet 300 mg PO BID Other Notes If you have any questions please call us at [phone] or [phone] or [phone] or [phone]
--- NOTE | 2022-07-21 09:38 | Anesthesiology Consultation ---
Date of Service July 21, 2022 Assessment & Plan (1) Encounter for pre-operative examination: Chart Review Chart Review: Acceptable Risk for Surgery and Patient seen in Pre Admission Testing Teaching & Discussion Pre-Anesthesia Teaching/Discussion Notes: Instructed NPO after midnight before surgery, except medications with 15 cc of water. Medication instructions provided according to the PAT guidelines. History Surgery Operation Date: 08/04/22 10:05 Proposed Procedures p L2-L4 Decompression and Fusion, L4-L5 Hardware Removal, Spinal Cord Monitoring - Richard Frost DO Height/Weight Height: 5 ft 9 in Weight: 102.058 kg Allergies Allergy/AdvReac Type Severity Reaction Status Date / Time No Known Allergies Allergy Verified 07/17/22 11:23 Medications Home Medications Medication Instructions Recorded Confirmed Last Taken acetaminophen 500 mg capsule 1,000 mg PO Q6H PRN Pain 09/08/20 07/17/22 09/06/20 gabapentin 300 mg tablet 300 mg PO BID 07/17/22 07/17/22 Unknown Past Medical History Medical History (Updated 07/21/22 @ 09:49 by Sarahi Mcnamara PA-C) Basal cell carcinoma of nose Degenerative disc disease Obesity (BMI 30.0-34.9) Sleep apnea CPAP-compliant Patient denies h/o stroke, seizures, heart attack, heart failure, DM, HTN, blood clots or blood transfusions. Exercise / Class Metabolic Activity III < 4 Walking/Shop/Light housework (denies chest discomfort or shortness of breath with usual activities) Past Family History Family History Other No family history of adverse response to anesthesia Past Surgical History Surgical History History of arthroscopy LEFT SHOULDER History of cataract surgery RT/LEFT History of colonoscopy History of lumbar spinal fusion 09/08/20 Dr. Frost L4-L5 decompression fusion Grade 2 view with anterior pressure, MAC 3, ETT 7.5. History of Mohs micrographic surgery for skin cancer History of tooth extraction Past Anesthesia History No Hx of Anesthesia Complications and No Family Hx of Anesthesia Complications History of PONV No Hx of PONV and No Hx of Motion Sickness Social History Smoking Status: Never smoker Do You Dip or Chew Tobacco: No Hx Alcohol Use: Yes Alcohol type: beer alcohol intake frequency: a few times a week Hx Substance Use: No substance use type: does not use Review of Systems Patient denies chest pain, shortness of breath, dyspnea on exertion, reflux, fever, chills, cough, wheezing, or palpitations. Physical Exam Vital Signs Vitals BP 136/85 P 66 TEMP 98.4 SP02 98% on RA RESP 18 Physical Full cervical extension range of motion without pain TMD 3.5 finger breadths Mallampati Score 3 Dentition: permanent front bridge; denies chipped or loose teeth, caps/crowns or implants Lungs: normal respiratory effort. Clear throughout to auscultation, no adventitious breath sounds Cardiac: regular rate and rhythm, no murmurs noted Carotid arteries: negative bruit bilat Lab Results Anesthesia Preop Results Results Anesthesia Widget: WBC 6.66 K/ul (4.8-10.8) 07/21/22 Hgb 14.6 g/dl (14.0-18.0) 07/21/22 Hct 43.1 % (42.0-52.0) 07/21/22 Plt 168 K/uL (130-400) 07/21/22 Na 138 mmol/L (136-145) 07/21/22 K 4.6 mmol/L (3.5-5.1) 07/21/22 Cl 104 mmol/L (98-107) 07/21/22 CO2 28 mmol/L (21-32) 07/21/22 BUN 14 mg/dl (6-23) 07/21/22 Creat 0.89 mg/dl (0.6-1.4) 07/21/22 Glucose Level 96 mg/dl (70-99(Fasting)) 07/21/22 PT 10.5 Seconds (9.0-12.0) 07/21/22 PTT 29.1 Seconds (21.0-31.0) 07/21/22 INR 1.0 (0.9-1.1) 07/21/22 Urine Color Yellow 07/21/22 Urine Appearance Clear (Clear) 07/21/22 Urine pH 6.0 (4.5-7.5) 07/21/22 Urine Specific [place] 1.012 (1.000-1.030) 07/21/22 Urine Protein Negative (Negative) 07/21/22 Urine Glucose (UA) Negative (Negative) 07/21/22 Urine Ketones Negative (Negative) 07/21/22 Urine Blood Negative (Negative) 07/21/22 Urine Nitrite Negative (Negative) 07/21/22 Urine Bilirubin Negative (Negative) 07/21/22 Urine Urobilinogen Negative (Negative) 07/21/22 Urine Leukocyte Esterase Negative (Negative) 07/21/22 Blood Type O Positive 07/21/22 Antibody Screen NEGATIVE 07/21/22 Testing Electrocardiogram Date: 07/21/22 NSR, rate 65 bpm Chest X-Ray Date: 07/21/22 Lung volumes are normal. Lungs are clear. There is no pneumothorax or pleural effusion. Cardiac size is normal. Mediastinal contours are normal. There is no evidence for pulmonary edema. IMPRESSION: No acute cardiopulmonary findings. Other Testing MRI lumbar spine 05/31/22 Adjacent segment disease at L3-L4 consisting of severe canal narrowing Disc disease and laminectomy at L4-5 COVID-19 Risk Screen Screening Information COVID-19 Screen Date: 07/21/22 Exposure 21 Days Family/Household +COVID Last 21 Days: No Exposure 10 Days Any COVID Exposure Last 10 Days: No Symptoms Last 10 Days Experienced COVID Sx Last 10 Days: No + COVID 0-90 Days COVID + in Last 0-90 Days: No
[~2022-08-04 07:57] MED LIST changes: -DEXAMETHASONE SOD INJ 4 MG/ML VIAL ONE; -GABAPENTIN 300 MG CAP PO SCH; +GABAPENTIN 600 MG DOSE PO SCH; -GLYCOPYRROLATE 0.2 MG/ML VIAL ONE; -HYDROmorphone INJ 2 MG/ML SYR/VIAL ONE; -LARYING-O-JET KIT (LTA) ONE; -LIDOCAINE HCL 2% 2 ML VIAL/AMP(20MG/ML) INFIL ONE; -LR 60ML/HR IV SCH; -MIDAZOLAM HCL 1 MG/ML 2ML VIAL ONE; -NEOSTIGMINE METHYLSULFATE 1 MG/ML 10ML VIAL ONE; -ONDANSETRON INJ 2 MG/ML 2 ML VIAL ONE; -PROPOFOL IV EMULSION 10 MG/ML 20 ML VIAL IV ONE; -ROCURONIUM BROMIDE 10 MG/ML 5 ML VIAL IV ONE; -fentaNYL citrate 100 MCG/2 ML VIAL ONE
[2022-08-04] MEDS ORDERED: fentaNYL citrate PF 100 MCG/2 ML VIAL ONE ×2 (08:41→10:41)
[2022-08-04] MEDS ORDERED: MIDAZOLAM HCL 1 MG/ML 2ML VIAL ONE (08:41)
[2022-08-04] MEDS ORDERED: ROCURONIUM BROMIDE 10 MG/ML 5 ML VIAL IV ONE ×6 (08:42→11:49)
[2022-08-04] MEDS ORDERED: DEXAMETHASONE SOD INJ 4 MG/ML VIAL ONE ×2 (08:42→12:25)
[2022-08-04] MEDS ORDERED: LIDOCAINE 2% MPF LOCAL 5 ML VIAL ONE (08:42)
[2022-08-04] MEDS ORDERED: PROPOFOL IV EMULSION 10 MG/ML 20 ML VIAL IV ONE ×2 (08:42→11:49)
[2022-08-04] MEDS ORDERED: ONDANSETRON INJ 2 MG/ML 2 ML VIAL ONE (08:42)
--- NOTE | 2022-08-04 09:22 | History & Physical Bridge Note ---
Date of Service August 04, 2022 History & Physical Bridge Note I have examined the patient, reviewed the History & Physical and in the interval since the performance of the History & Physical I have noted the following changes of clinical significance: no changes noted
--- NOTE | 2022-08-04 09:23 | History & Physical Report ---
Date of Service August 04, 2022 Assessment & Plan (1) Neurogenic claudication due to lumbar spinal stenosis: Plan: L2-L4 decompression and fusion, L4-L5 hardware removal History of Present Illness Chief Complaint: Back and leg pain Primary Care Provider: Angel Neal MD This is a 62-year-old male who presents with chronic persistent back and leg pain after failing course of nonoperative care is here for surgical invention. Allergies Allergy/AdvReac Type Severity Reaction Status Date / Time No Known Allergies Allergy Verified 08/04/22 08:23 Home Medications Medication Instructions Recorded Confirmed Type acetaminophen 500 mg capsule 1,000 mg PO Q6H PRN Pain 09/08/20 08/04/22 History gabapentin 300 mg tablet 300 mg PO BID 07/17/22 08/04/22 History Past Med/Surg History Medical History Basal cell carcinoma of nose Degenerative disc disease Obesity (BMI 30.0-34.9) Sleep apnea CPAP-compliant Surgical History History of arthroscopy LEFT SHOULDER History of cataract surgery RT/LEFT History of colonoscopy History of lumbar spinal fusion 09/08/20 Dr. Frost L4-L5 decompression fusion Grade 2 view with anterior pressure, MAC 3, ETT 7.5. History of Mohs micrographic surgery for skin cancer History of tooth extraction Family History Other No family history of adverse response to anesthesia Social History Smoking Status: Never smoker Second Hand Exposure: No; Do You Dip or Chew Tobacco: No; Tobacco Cessation Education Requested by Patient: No Hx Alcohol Use: Yes Alcohol type: beer Hx Substance Use: No Preferred Language: Uzbek Communication Ability: Effective Director Women Required: No Beliefs That Will Affect Care: None marital status: Life Partner Current Living Situation: Significant Other Other Information That Helps Us Care for You: No Feels Safe at Home: Yes Safety Concerns: Feels Safe At This Time Assistive Devices: None and CPAP Physical Exam Physical Exam: Patient is alert and oriented Heart regular rhythm Lungs clear Results & Data Results & Data Vital Signs (Past 12 Hours) Vital Signs Temp Pulse Resp BP Pulse Ox O2 Del Method 08/04/22 08:24 CPAP 08/04/22 08:24 36.6 C 68 18 150/72 H 95 Room Air
[2022-08-04] MEDS ORDERED: ePHEDrine sulfate 50 MG/ML AMP IV PRN ×2 (09:40→13:15)
[2022-08-04] MEDS ORDERED: ATROPINE SULFATE 0.1 MG/ML 10ML SYR IV PRN ×2 (09:40→13:15)
[2022-08-04] MEDS ORDERED: ONDANSETRON INJ 2 MG/ML 2 ML VIAL IV PRN ×2 (09:40→14:30)
[2022-08-04] MEDS ORDERED: ceFAZolin 330 MG/ML 1 GM VIAL ONE (09:53)
[2022-08-04] MEDS ORDERED: BUPIVACAINE/EPINEPHRINE 0.25% 1:200,000 30 ML VIAL ONE ×2 (09:53→10:07)
[2022-08-04] MEDS ORDERED: FLOSEAL HEMOSTATIC MATRIX 10ML TOP ONE (10:39)
[2022-08-04] MEDS ORDERED: HYDROmorphone INJ 2 MG/ML SYR/VIAL ONE (10:53)
[2022-08-04] MEDS ORDERED: SUGAMMADEX SODIUM 200 MG/2 ML VIAL IV ONE (12:05)
[2022-08-04] MEDS ORDERED: SODIUM CHLORIDE 0.9% PF INJ 10 ML VIAL ONE (12:24)
--- NOTE | 2022-08-04 12:27 | Operative Report ---
Post Operative Report Pre & Post Diagnosis Operation Date: 08/04/22 09:35 Pre-Op Diagnosis: Neurogenic claudication due to lumbar spinal stenosis Post-Op Diagnosis: Neurogenic claudication due to lumbar spinal stenosis I identified the patient and participated in the time-out.: Yes Procedure Operation Date: 08/04/22 09:35 Actual Procedures #1 removal of instrumentation L4-L5. #2 exploration of fusion L4-L5. #3 lumbar decompression bilaterally facetectomies and foraminotomies L2-L3 L3-L4. #4 posterior spinal fusion L2-L3 L3-L4. #5 placement posterior instrumentation L2- L5. #6 interbody fusion L3-L4. #7 placement of Spira 13 x 26 mm cage at L3-L4. #8 placement locally harvested morselized autograft in the posterior gutters. #9 placement of I factor, and of the talus in the interbody space and posterior lateral gutters. Surgeon Richard Frost, DO Survey Worker None Estimated Blood Loss 300 Findings See Below The patient is 5 foot 9 weighing over 102 kg with a BMI in excess of 33. The kwaku mijares's body habitus did contribute to significant technical difficulty required deepest retractors and longer instruments in order to perform his procedure. This had at least 50% increased operative time. Specimens None Indications This is a 62-year-old male who presents above-mentioned diagnosis after failing course of nonoperative care is here for surgical invention. Description of Procedure Patient was met with identified informed consent obtained. Patient was then taken to the operative suite underwent patient placed in a prone position the [place] table top Evert frame. All bony prominences well-padded eyes inspected to ensure no external pressure placed upon them. This point the lumbar spine was prepped and draped in normal sterile fashion. Sharp dissection with the assistance of Bovie cautery was performed down to and exposing the lamina transverse processes of L2-L3 and instrumentation at L4-L5 bilaterally. Then proceeded with the hardware bilaterally explore the fusion mass noting it to be intact. Then performed a complete laminectomy of L3 and L2 including bilateral medial facetectomies and foraminotomies addressing severe spinal stenosis. Pedicle screws were then placed in L2 L3-L4-L5 bilaterally with assistance of fluoroscopy and the properly sized an placed. By way of a trans foraminal approach on the left complete discectomy of L3-L4 was performed endplates curetted to subcortically and bone and a 13 x 26 mm Spira cage with I factor tapped in position. The rods were then locked in a final position bilaterally. The transverse processes of L4-L3 L4 burred to subcortical bleeding bone. I factor combined with the test and locally harvested morselized autograft was then placed in the posterior gutters. 15 round CAMELIA drain inserted. The incision was then closed with 1 Vicryl to fascia 2-0 Vicryl subcutaneously and 4 Monocryl for final skin closure. Steri-Strips sterile dressing placed. Patient awakened and taken to PACU in stable condition. Please note spinal cord monitoring was utilized at the procedure no changes noted. I attest to the content of the Intraoperative Record and any orders documented therein. Any exceptions are noted below.
--- NOTE | 2022-08-04 12:42 | Fluoroscopy Report ---
FL lumbar spine 2-3V CLINICAL HISTORY: L2-L4 DECOMPRESSION AND FUSION L4-L5 HW REMOVAL COMPARISON STUDY: 09/08/2020. FLUOROSCOPY TIME: 19 seconds FLUOROSCOPY IMAGES: 3 Ka,r: 17.6 mGy FINDINGS: Posterior decompression and fusion at L2-L5 with pedicle screws and rods. The hardware appe ars intact. Disc spacers are placed. IMPRESSION: Fluoroscopic assistance as above. ACT 112: Negative or not required by law. Electronically signed by: Cr [place] M.D. 08/04/2022 12:41 PM
[2022-08-04] MEDS: fentaNYL citrate PF 100 MCG/2 ML VIAL IV PRN ×4 (12:51→13:06)
--- NOTE | 2022-08-04 13:07 | Anesthesiology Progress Note ---
Date of Service August 04, 2022 Anesthesia Post Procedure Vital Signs Vital Signs: Temp Pulse Pulse Resp BP Pulse Ox O2 Del Method 08/04/22 13:00 77 15 142/90 H 93 Oxymask 08/04/22 12:50 78 16 149/89 H 94 Oxymask 08/04/22 12:40 79 16 142/89 H 97 Oxymask 08/04/22 12:38 97.2 F L 67 16 181/90 H 99 Oxymask 08/04/22 08:24 CPAP 08/04/22 08:24 97.9 F 68 18 150/72 H 95 Room Air O2 Flow Rate 08/04/22 13:00 6 08/04/22 12:50 6 08/04/22 12:40 6 08/04/22 12:38 6 08/04/22 08:24 08/04/22 08:24 Pain Intensity Back: Pain Intensity: 8 Transfer of Care Handoff Completed per policy Notes Mental Status: alert / awake / arousable and participated in evaluation Patient Amnestic to Procedure: Yes Nausea / Vomiting: adequately controlled Pain: adequately controlled and improving with treatment Airway Patency, RR, SpO2: stable & adequate BP & HR: stable & adequate Hydration State: stable & adequate Anesthetic Complications: no major complications apparent and Pt Satisfied with anesthetic care
[2022-08-04] MEDS ORDERED: ACETAMINOPHEN 1,000 MG/100 ML VIAL IV STA (13:15)
[2022-08-04] MEDS ORDERED: HYDROmorphone INJ 1 MG/ML SYRINGE ONE (13:16)
[2022-08-04] MEDS: HYDROmorphone INJ 1 MG/ML SYRINGE IV PRN ×8 (13:18→13:53)
[2022-08-04] MEDS ORDERED: ACETAMINOPHEN 500 MG TAB PO PRN (14:30)
[2022-08-04] MEDS ORDERED: DO NOT ADMINISTER FLU VACCINE PRN (14:30)
[2022-08-04] MEDS ORDERED: MAGNESIUM HYDROXIDE SUSP 30 ML UDC PO PRN (14:30)
[2022-08-04] MEDS ORDERED: HYDROmorphone INJ 0.5 MG/0.5 ML SYR IV PRN (14:30)
[2022-08-04] MEDS ORDERED: METOCLOPRAMIDE HCL INJ 5 MG/ML 2 ML VIAL IV PRN (14:30)
[2022-08-04] MEDS ORDERED: LORazepam 2 MG/1 ML VIAL IV PRN (14:30)
[2022-08-04] MEDS ORDERED: NALOXONE HCL 0.4 MG/1 ML VIAL/CARP IV PRN (14:30)
[2022-08-04] MEDS ORDERED: HYDROmorphone INJ 1 MG/ML SYRINGE IV PRN (14:30)
[2022-08-04] MEDS ORDERED: PROMETHAZINE HCL 12.5 MG in SODIUM CHLORIDE 0.9% 50 ML IV PRN (14:30)
[2022-08-04] MEDS ORDERED: DO NOT ADMINISTER PNEUMOCOCCAL VACCINE PRN (14:30)
[2022-08-04] MEDS ORDERED: ONDANSETRON 4 MG OD TAB PO PRN (14:30)
[2022-08-04] MEDS ORDERED: bisacodyL 10 MG SUPP PR PRN (14:30)
[2022-08-04] MEDS ORDERED: FAMOTIDINE 20 MG TAB PO PRN (14:30)
[2022-08-04] MEDS ORDERED: ALUMINUM/MAGNESIUM SUSP 30 ML UDC PO PRN (14:30)
[2022-08-04] MEDS ORDERED: hydrOXYzine HCl 25 MG TAB PO PRN (14:30)
[2022-08-04] MEDS ORDERED: SOD PHOSPHATE/SOD BIPHOSPHATE ENEMA 132 ML BTL PR PRN (14:30)
[2022-08-04] MEDS ORDERED: LORazepam 0.5 MG TAB PO PRN (14:30)
[2022-08-04] MEDS ORDERED: ACETAMINOPHEN 1,000 MG/100 ML VIAL IV PRN (14:30)
[2022-08-04] MEDS ORDERED: diphenhydrAMINE Capsule 25 MG CAP PO PRN (14:30)
[2022-08-04] MEDS: LACTATED RINGER'S 1,000 ML IV SCH ×2 (15:40→20:11)
[2022-08-04] MEDS: oxyCODONE HCL IR 5 MG TAB (IMMEDIATE RELEASE) PO PRN ×2 (16:05→20:09)
[2022-08-04] MEDS: ceFAZolin 2000MG 2,000 MG/15 ML SYR IV SCH (17:41)
--- NOTE | 2022-08-04 17:52 | Consultation ---
Date of Consultation August 04, 2022 Assessment & Plan (1) Status post lumbar surgery: (2) Neurogenic claudication due to lumbar spinal stenosis: Post op day# 0 S/P removal of prior instrumentation from L4-L5, decompression and fusion L2-L4 by Dr Frost EBL#300ml -pain management per ortho -wound management per ortho -PT/OT as appropriate -DVT prophylaxis per ortho -incentive spirometry -monitor H&H for acute blood loss anemia; pre-op Hgb: 14 (3) MANI (obstructive sleep apnea): -CPAP HS (4) Obesity (BMI 30.0-34.9): BMI: 33 -Encourage lifestyle modifications DVT Prophylaxis -SCDs Disposition per primary service Follows with Dr Neal for routine care Pt was seen and care coordinated with Dr Fajardo. See addendum I spent a total of 45 minutes reviewing notes, outpatient records, labs, medication, coordinating, documenting and providing care for this patient excluding time spent in the performance of separately billed services. Supervising Physician Co-Signing Physician Notes Patient seen and examined Status post L2 L4 decompression Pain control Get CBC and BMP in the morning Agree with plans as detailed by Dorothea Porter PA-C History of Present Illness Requesting Physician: Dr. Frost Reason for Consultation: Postop medical management Attending Physician: Richard Frost, DO History of Present Illness Patient is 62-year-old male with PMH lumbar back pain, MANI, obesity seen in medical consultation s/p removal of prior instrumentation from L4-L5, decompression and fusion L2-L4 today by Dr Frost. Post op patient reports some low back pain. Has [place] catheter in place. Reports last BM this morning. Tolerated clear liquids. Denies fever/chills, N/V/D, SQUIRES, dizziness, CP, SOB, cough, abdominal pain, paresthesias, extremity weakness, urinary symptoms. Allergies Allergy/AdvReac Type Severity Reaction Status Date / Time No Known Allergies Allergy Verified 08/04/22 08:23 Home Medications Medication Instructions Recorded Confirmed Type acetaminophen 500 mg capsule 1,000 mg PO Q6H PRN Pain 09/08/20 08/04/22 History gabapentin 300 mg tablet 300 mg PO BID 07/17/22 08/04/22 History Patient History Medical History Basal cell carcinoma of nose Degenerative disc disease Obesity (BMI 30.0-34.9) Sleep apnea CPAP-compliant Surgical History History of arthroscopy LEFT SHOULDER History of cataract surgery RT/LEFT History of colonoscopy History of lumbar spinal fusion 09/08/20 Dr. Frost L4-L5 decompression fusion Grade 2 view with anterior pressure, MAC 3, ETT 7.5. History of Mohs micrographic surgery for skin cancer History of tooth extraction Family History Other No family history of adverse response to anesthesia Social History Smoking Status: Never smoker Second Hand Exposure: No; Do You Dip or Chew Tobacco: No; Tobacco Cessation Education Requested by Patient: No Hx Alcohol Use: Yes Alcohol type: beer Hx Substance Use: No Preferred Language: Turkish Communication Ability: Effective Dice Table Operator Required: No Beliefs That Will Affect Care: None marital status: Life Partner Current Living Situation: Significant Other Other Information That Helps Us Care for You: No Feels Safe at Home: Yes Safety Concerns: Feels Safe At This Time Assistive Devices: Walker Review of Systems Review of Systems: All systems reviewed & are unremarkable except as noted in HPI & below Physical Exam Physical Exam: General: no distress, obese Head: normocephalic, atraumatic Eyes: conjunctiva non-injected, anicteric ENT: normal inspection external ears, nose, mucous membranes moist Neck: supple, trachea midline Lungs: clear, no respiratory distress, no wheezing/rhonchi/rales CV: RRR, no murmur, no pretibial edema Abd: normal BS, soft, non-tender Back: CAMELIA drain in place Ext: no cyanosis, no calf tenderness; bilateral pedal pushes and pulls intact, distal pulses intact, sensation to light touch intact Neuro: A&O x 3, no focal deficits noted, normal affect Skin: warm, dry Results & Data Vital Signs (Past 12 Hours) Vital Signs Temp Pulse Pulse Resp BP Pulse Ox O2 Del Method 08/04/22 17:26 36.5 C 89 16 136/76 94 Room Air 08/04/22 16:24 36.4 C L 71 16 138/66 97 Nasal Cannula 08/04/22 15:25 36.6 C 72 18 158/81 H 97 Nasal Cannula 08/04/22 14:55 36.4 C L 67 18 145/79 H 100 Nasal Cannula 08/04/22 14:25 36.7 C 75 16 157/75 H 96 Nasal Cannula 08/04/22 14:25 Nasal Cannula 08/04/22 14:10 36.1 C L 60 12 143/70 H 98 Nasal Cannula 08/04/22 14:00 65 17 143/71 H 99 Nasal Cannula 08/04/22 13:50 59 L 12 135/79 98 Nasal Cannula 08/04/22 13:40 66 12 142/75 H 98 Nasal Cannula 08/04/22 13:30 75 14 149/82 H 100 Nasal Cannula 08/04/22 13:20 78 14 151/87 H 98 Nasal Cannula 08/04/22 13:10 79 15 150/78 H 90 Room Air 08/04/22 13:00 77 15 142/90 H 93 Oxymask 08/04/22 12:50 78 16 149/89 H 94 Oxymask 08/04/22 12:40 79 16 142/89 H 97 Oxymask 08/04/22 12:38 36.2 C L 67 16 181/90 H 99 Oxymask 08/04/22 08:24 CPAP 08/04/22 08:24 36.6 C 68 18 150/72 H 95 Room Air O2 Flow Rate 08/04/22 17:26 08/04/22 16:24 2 08/04/22 15:25 2 08/04/22 14:55 2 08/04/22 14:25 2 08/04/22 14:25 2 08/04/22 14:10 2 08/04/22 14:00 2 08/04/22 13:50 2 08/04/22 13:40 2 08/04/22 13:30 2 08/04/22 13:20 2 08/04/22 13:10 08/04/22 13:00 6 08/04/22 12:50 6 08/04/22 12:40 6 08/04/22 12:38 6 08/04/22 08:24 08/04/22 08:24
[2022-08-04] MEDS: GABAPENTIN 300 MG CAP PO SCH (20:11)
[2022-08-04] MEDS: DOCUSATE SODIUM/SENNA 50/8.6MG TAB PO SCH (20:11)
[2022-08-05] MEDS: oxyCODONE HCL IR 5 MG TAB (IMMEDIATE RELEASE) PO PRN ×6 (00:56→22:57)
[2022-08-05] MEDS: LACTATED RINGER'S 1,000 ML IV SCH (02:35)
[2022-08-05] MEDS: ceFAZolin 2000MG 2,000 MG/15 ML SYR IV SCH (02:35)
[2022-08-05] MEDS: POLYETHYLENE (MIRALAX) 17 GM PACK PO SCH ×4 (05:06→22:57)
[2022-08-05 07:02] LABS: Basophils # (auto) 0.01 K/uL (0-0.2); Basophils % (auto) 0.1 %; Hematocrit (blood only) 34.2 % (42.0-52.0); Hemoglobin 11.7 g/dl (14.0-18.0); Immature Granulocytes # (auto) 0.05 K/uL (0.01-0.20); Immature Granulocytes % (auto) 0.4 %; Lymphocytes # (auto) 1.28 K/uL (1.2-3.4); Lymphocytes % (auto) 9.7 %; Mean Corpuscular Hemoglobin 31.3 pg (25.0-34.0); Mean Corpuscular Hgb Conc 34.2 g/dL (32.0-36.0); Mean Corpuscular Volume 91.4 fL (80.0-100.0); Monocytes # (auto) 0.51 K/uL (0.11-0.59); Monocytes % (auto) 3.8 %; Platelet Count 170 K/uL (130-400); RDW Standard Deviation 42.6 fL (36.4-46.3); Red Blood Count 3.74 M/uL (4.70-6.10); White Blood Count 13.25 K/ul (4.8-10.8)
[2022-08-05 07:13] LABS: BUN Creatinine Ratio 13.8 (10-20); Calcium 8.2 mg/dl (8.6-10.3); Est GFR (African American) 105.7 ml/min; Est GFR (Non-African American) 91.2 ml/min; Potassium 4.1 mmol/L (3.5-5.1)
[2022-08-05] MEDS: GABAPENTIN 300 MG CAP PO SCH ×2 (08:12→20:47)
[2022-08-05] MEDS: dexAMETHasone 6 MG in SYRINGE 0 ML IV SCH (08:13)
--- NOTE | 2022-08-05 10:57 | Orthopedic Progress Note ---
Date of Service August 05, 2022 Assessment & Plan (1) Neurogenic claudication due to lumbar spinal stenosis: Plan: At this time continue physical therapy monitor his CAMELIA output hopefully discharge home Sunday or Sunday. Admission and Anticipated Discharge Date Admission Date: August 04, 2022 Subjective Back pain controlled leg pain improved Physical Exam Physical Exam: Patient is seen in his chair at bedside. Discussing the testing. Appears co mfortable. Results & Data Vital Signs (Past 12 Hours) Vital Signs Temp Pulse Pulse Resp BP Pulse Ox O2 Del Method 08/05/22 07:18 36.4 C L 67 16 124/65 95 Room Air 08/05/22 02:39 36.4 C L 63 16 122/67 94 Room Air
--- NOTE | 2022-08-05 14:06 | Hospitalist Progress Note ---
Date of Service August 05, 2022 Assessment & Plan (1) Status post lumbar surgery: Plan: per previous hospitalist notes with addendum: (2) Neurogenic claudication due to lumbar spinal stenosis: Plan: Post op day# 0 S/P removal of prior instrumentation from L4-L5, decompression and fusion L2-L4 by Dr Margot MAIN#300ml -pain management per ortho -wound management per ortho -PT/OT as appropriate -DVT prophylaxis per ortho -incentive spirometry -monitor H&H for acute blood loss anemia; pre-op Hgb: 14 4/7 Stable clinically overall Hemoglobin 12, repeat in the morning Continue pain management DVT prophylaxis (3) MANI (obstructive sleep apnea): Plan: -CPAP HS (4) Obesity (BMI 30.0-34.9): Plan: BMI: 33 -Encourage lifestyle modifications DVT Prophylaxis -SCDs Disposition per primary service Follows with Dr Neal for routine care Admission and Anticipated Discharge Date Admission Date: August 04, 2022 Subjective ff up for s/p back surgery, etc seen resting in bed, comfortable states he is having significant pain today Pain medications helping no chest pain, dyspnea, palpitations, dizziness No leg weakness and numbness Review of Systems Review of Systems: all noted and negative except for above Physical Exam Physical Exam: General- oriented x 3, not in distress, speaks in sentences with no effort or accessory muscle use Eyes- anicteric Neck- no JVD Lungs- clear breath sounds bilaterally, no rales/wheezes Heart- normal rate, regular rhythm; no murmurs Abdomen- normal bowel sounds, nondistended, soft, nontender Extremities- no pretibial edema, no calf tenderness Neuro- alert, oriented x 3; no gross focal neurologic deficits Skin- warm & dry Results & Data Results & Data Vital Signs (Past 12 Hours) Vital Signs Temp Pulse Pulse Resp BP Pulse Ox O2 Del Method 08/05/22 07:18 36.4 C L 67 16 124/65 95 Room Air 08/05/22 02:39 36.4 C L 63 16 122/67 94 Room Air all noted and reviewed including below
[2022-08-05] MEDS: traMADol HCL 50 MG TABLET PO PRN (20:47)
[2022-08-05] MEDS: DOCUSATE SODIUM/SENNA 50/8.6MG TAB PO SCH (20:48)
[2022-08-06] MEDS: oxyCODONE HCL IR 5 MG TAB (IMMEDIATE RELEASE) PO PRN ×2 (05:53→11:10)
[2022-08-06] MEDS: POLYETHYLENE (MIRALAX) 17 GM PACK PO SCH ×2 (05:53→11:10)
[2022-08-06] MEDS: GABAPENTIN 300 MG CAP PO SCH (09:21)
[2022-08-06] MEDS: dexAMETHasone 6 MG in SYRINGE 0 ML IV SCH (09:21)
[2022-08-06] MEDS: traMADol HCL 50 MG TABLET PO PRN (09:29)
[2022-08-06 09:43] LABS: Basophils # (auto) 0.03 K/uL (0-0.2); Basophils % (auto) 0.3 %; Eosinophils # (auto) 0.02 K/uL (0-0.50); Eosinophils % (auto) 0.2 %; Hematocrit (blood only) 35.9 % (42.0-52.0); Hemoglobin 12.3 g/dl (14.0-18.0); Immature Granulocytes # (auto) 0.06 K/uL (0.01-0.20); Immature Granulocytes % (auto) 0.5 %; Lymphocytes # (auto) 2.47 K/uL (1.2-3.4); Lymphocytes % (auto) 20.7 %; Mean Corpuscular Hemoglobin 31.4 pg (25.0-34.0); Mean Corpuscular Hgb Conc 34.3 g/dL (32.0-36.0); Mean Corpuscular Volume 91.6 fL (80.0-100.0); Mean Platelet Volume 11.1 fL (9.4-12.4); Monocytes # (auto) 0.52 K/uL (0.11-0.59); Monocytes % (auto) 4.3 %; Neutrophils # (auto) 8.86 K/uL (1.40-6.50); Platelet Count 163 K/uL (130-400); RDW Coefficient of Variation 13.5 % (11.5-14.5); RDW Standard Deviation 44.5 fL (36.4-46.3); Red Blood Count 3.92 M/uL (4.70-6.10); White Blood Count 11.96 K/ul (4.8-10.8)
--- NOTE | 2022-08-06 11:17 | Discharge Summary ---
Date of Service August 06, 2022 Admission HPI Per Admitting Provider This is a 62-year-old male who presents with chronic persistent back and leg pain after failing course of nonoperative care is here for surgical invention. Principal Diagnosis Lumbar spinal stenosis with neurogenic claudication Discharge Data Allergies Allergy/AdvReac Type Severity Reaction Status Date / Time No Known Allergies Allergy Verified 08/04/22 08:23 Consultations 08/04/22 14:30 Consult Hospitalist Routine Procedures Performed Operation Date: 08/04/22 09:35 Actual Procedures p L2-L4 Decompression and Fusion, L4-L5 Hardware Removal, Spinal Cord Monitoring(Not Applicable) - Richard Frost DO Ordered Studies 08/04/22 09:35 [place] lumbar spine 2-3V Routine Hospital Course (1) Neurogenic claudication due to lumbar spinal stenosis: Patient underwent lumbar decompression fusion tolerated as well as taken to orthopedic for postoperative. Postoperative day 1 he was up and ambulating progressed to postop day #2. CAMELIA drain decreasing probably. Excellent strength testing. Subsequently discharged home. Discharge orders and instructions found in chart for further review. Total Time Total Time Spent Total Time Spent (In Minutes): 20 minutes Discharge Plan Discharge Items Patient Disposition: Home - Self-Care Reason For Visit: Lumbar Region Spinal Stenosis without Neurogenic Discharge Diagnosis: Lumbar spinal stenosis with neurogenic claudication Activity: As commented below Non-emergency contact: Primary Care Provider Call non-emergency contact if: you have any medication questions Follow-up/Referrals: Angel Neal MD [Primary Care Provider] - Diet: Regular Addtl Attending Provider Instructions: ACTIVITY RECOMMENDATIONS: SELF CARE INSTRUCTIONS AFTER THORACIC/LUMBAR FUSIONS 1. You may walk to your tolerance. It is good exercise for your legs and back. Expect some back and intermittent leg aches and pains. 2. You may perform "counter-top" level activities (make a sandwich, grace with a project, etc.). 3. No bending or lifting of more than 10 pounds or back twisting of any nature (roll like a log when turning in bed). 4. You may ride in a car for 20-30 minutes at a time. No driving until after your first visit with your doctor. 5. Frequent changes of position and restricting sitting to 30 minutes at a time will help limit the amount of back spasms and stiffness you may experience. 6. You may discontinue the use of ambulatory aids (cane, crutches, etc.) once your strength and confidence allow. 7. You may printed circuit boards inspector the shower and let water strike your incision when you arrive home at least once daily. Do not take a tub bath, sit in a hot tub or go into a swimming pool until after your first recheck in the office. SPECIAL CARE INSTRUCTIONS: VERY IMPORTANT TO READ AND REVIEW A. Your surgical incision has been closed with a cosmetic suture under the skin that will dissolve in about 6 weeks. In 14 days, you can use a pair of clean scissors and cut the suture that is left outside of the skin at the ends of your incision. 1. The small skin tapes can be removed 7 days after surgery if they have not fallen off by that point. 2. You may keep the wound open to air as much as possible to promote healing after post-op day number 5 unless told otherwise by your doctor. 3. If you think the wound looks like it is becoming infected (redness or worsening drainage) and/or you are experiencing fever, chill or worsening back pain and muscle spasms, contact the office so that we may evaluate you as soon as possible. B. Complications are uncommon, but please contact us if you have any signs or symptoms of: 1. wound infection (fever higher than 102.5 degrees F, redness, separation of wound, drainage, or increasing pain from the incision) 2. blood clots in legs (pain, swelling, redness and warmth in legs) 3. urinary tract infection (fever higher than 102.5 degrees F, burning upon urination or increased frequency of urination) 4. nerve problems (inability to walk on your toes or heels, numbness, loss of bowel or bladder control) 5. any other symptoms that concern you C. Please call the office at if you have any concerns or questions about your operation or recovery. D. No smoking! Smoking drastically decreases the chance of a solid fusion. E. Do not take any anti-inflammatory medications (Indocin, Advil, Motrin, Aspirin, Naprosyn, etc.) as these may inhibit the chance of a solid fusion. Tylenol is okay to take for pain. MANAGING PAIN AFTER SPINAL SURGERY 1. Narcotic medication is intended for short-term use and will be provided for surgical pain. Surgical pain usually lasts for a period of 4-6 weeks. Narcotic medication includes Percocet, Vicodin, Darvocet, Tylenol #3 or Lortab. 2. Longer-term pain is more appropriately treated with non-narcotic medication such as Tylenol ES. 3. Muscle spasm is not appropriately treated with narcotics. Muscle relaxers such as Soma, Flexeril or Skelaxin can be used along with Tylenol ES. 4. Remember that we all live with some "aches and pains". This is not unusual or uncommon after an injury or as we get older. a. Back pain is expected and may include muscle spasms for 4 to 6 weeks after surgery. The pain should gradually improve. If the pain worsens for no apparent reason, please contact the office. b. Intermittent leg pain may also be experienced and should not be concerned about unless it worsens for no apparent reason. If so, please contact the office. 5. We will provide appropriate medication within the normal guidelines of their prescribed use. We will also be very cautious and aware of potential abuse and extended duration of patients' medication needs. a. Pain medications are for your comfort and to assist with sleep and rest so that the tissue can heal. They are not provided in order to return to normal activity and should not be used through the day. To do so or worsening pain at night can result from ongoing tissue damage and development of tolerance to the prescribed medicine. 6. Please allow 2-3 days to process refills. Prescriptions will not be mailed but must be picked up at the office. FOLLOW UP VISIT: Keep your scheduled follow-up appointment. Any questions, please call the office at . Pending Studies at Discharge: No Stand-Alone Forms: My [facility] [employer], Smoking Cessation Medications and DC Order Prescriptions: New tramadol 50 mg tablet 50 mg PO Q6H PRN (Reason: pain, moderate) Qty: 30 0RF oxycodone-acetaminophen [Percocet] 5-325 mg tablet 1 tab PO Q8H Qty: 30 0RF Continued gabapentin 300 mg Tablet 300 mg PO BID acetaminophen 500 mg Capsule 1,000 mg PO Q6H PRN (Reason: Pain) Discharge Orders: Discharge Order (Routine); Ordered 08/06/22 Ordered By: Richard Frost Admission Data Admit Date/Time: 08/04/22 12:29 Attending Provider: Richard Frost Admit Provider: Richard Frost Primary Care Provider: Angel Neal Other Providers: Jennifer Aquino ; Shivam Rodriguez
== END 2022-08-06 13:27 | disposition home or self-care (01) | DRG 460 ==
LOC: ASU 07:57 → 3E 12:29